=== PATIENT | male | born 1970 | race American Indian/Alaskan Native ===

== ENCOUNTER 2018-02-23 08:27 | Emergency (ER) | payer MEDICAID ==
[2018-02-23 08:38] VITALS: BP 123/87
[2018-02-23] MEDS ORDERED: MOTRIN PO ONE (09:47)
[2018-02-23] MEDS ORDERED: ULTRAM PO ONE (09:47)
--- NOTE | 2018-02-23 11:39 | XRay Report ---
Right rib series: Right rib trauma, pain. There is a mild offset through a fracture of the lateral right 10th rib. The ribs are otherwise appears unremarkable. There is no underlying soft tissue mass. There is no pneumothorax and the right lung is clear. Impression: Right 10th rib fracture.
--- NOTE | 2018-02-23 11:53 | Emergency Department Report ---
ED Fall HPI - General Chief Complaint: Fall Stated Complaint: FALL Time Seen by Provider: 02/23/18 09:40 Source: patient, family Mode of arrival: Ambulatory - History of Present Illness Initial Comments: This is a 47-year-old male that lives with sister who is janitor caretaker. Sister reported patient had multiple strokes and he uses a walker and fell last week Monday at the daycare. He's been higher than body ache and right rib pain at posterior lower upper back. Denies patient would've any head injury. Patient denies any headache. He says his pain to right rib posteriorly is 6 out of 10 and feels sore and achy. Pain is worse with taking a deep breath and moving around but is resting. No positive medication taken. MD Complaint: fall Onset/Timin -: week(s) Fall From: standing When Fall Occurred: # days [employer] (7) Fall Witnessed: yes, by living facility s Place Fall Occurred: other (daycare) Loss of Consciousness: none Prolonged Down Time?: no Symptoms Prior to Fall: none Location: back (right thorax) Severity: moderate Severity scale (0 -10): 6 Quality: aching Context: tripped/slipped, other (patient uses a walker and his mobilities impede or for multiple stroke) Associated Symptoms: other (body ache). denies: headache, neck pain, numbness, weakness, chest paint, shortness of breath, abdominal pain, hematuria, unable to walk - Related Data Previous Rx's Medication Instructions Recorded Last Taken Type Acetaminophen/Codeine [Tylenol 1 tab PO Q6H PRN #12 tab 02/23/18 Unknown Rx /Codeine # 3 tab] Ibuprofen [Motrin] 600 mg PO Q8H PRN #15 tablet 02/23/18 Unknown Rx Allergies Allergy/AdvReac Type Severity Reaction Status Date / Time No Known Allergies Allergy Unverified 02/23/18 08:32 ED Review of Systems ROS: Stated complaint: FALL Other details as noted in HPI Constitutional: denies: chills, fever Eyes: denies: eye pain, vision change Respiratory: denies: cough, shortness of breath, SOB with exertion, SOB at rest , stridor, wheezing Cardiovascular: denies: chest pain, palpitations, edema, syncope Gastrointestinal: denies: abdominal pain, nausea, vomiting, diarrhea Genitourinary: denies: urgency, dysuria Musculoskeletal: back pain, myalgia. denies: joint swelling, arthralgia Skin: denies: rash, lesions Neurological: abnormal gait (chronic). denies: headache, weakness, numbness, paresthesias ED Past Medical Hx - Past Medical History Previous Medical History?: Yes Hx Hypertension: Yes Hx CVA: Yes (x 3) Hx Diabetes: Yes Additional medical history: Left facial droop and right side weakness after multiple CVA - Surgical History Past Surgical History?: Yes Additional Surgical History: Right jaw surgery, Left knee - Family History Family history: hypertension - Social History Smoking Status: Current Every Day Smoker Substance Use Type: Prescribed - Medications Home Medications: Home Medications Medication Instructions Recorded Confirmed Last Taken Type Acetaminophen/Codeine [Tylenol 1 tab PO Q6H PRN #12 tab 02/23/18 Unknown Rx /Codeine # 3 tab] Ibuprofen [Motrin] 600 mg PO Q8H PRN #15 tablet 02/23/18 Unknown Rx ED Physical Exam - General Limitations: Physical Limitation General appearance: alert, in no apparent distress - Head Head exam: Present: atraumatic, normocephalic, normal inspection, other (normal exam) - Eye Eye exam: Present: normal appearance, PERRL, EOMI - ENT ENT exam: Present: normal exam, normal orophraynx, mucous membranes moist - Neck Neck exam: Present: normal inspection, full ROM, other (no C-spine tenderness). Absent: tenderness, lymphadenopathy - Respiratory Respiratory exam: Present: normal lung sounds bilaterally, chest wall tenderness (posterior distal right thorax tenderness without any contusion, abrasion or laceration. Old healed scar noted). Absent: respiratory distress, wheezes, rales, rhonchi, stridor, accessory muscle use, decreased breath sounds , prolonged expiratory - Cardiovascular Cardiovascular Exam: Present: normal rhythm, tachycardia (mild). Absent: systolic murmur, diastolic murmur - GI/Abdominal GI/Abdominal exam: Present: soft, normal bowel sounds - Rectal Rectal exam: Present: deferred - Extremities Exam Extremities exam: Present: normal inspection - Back Exam Back exam: Present: normal inspection - Neurological Exam Neurological exam: Present: alert, oriented X3 - Psychiatric Psychiatric exam: Present: normal affect, normal mood - Skin Skin exam: Present: warm, dry, intact, normal color. Absent: rash ED Course Vital Signs 02/23/18 08:33 Temperature 98.3 F Pulse Rate 102 H Respiratory 20 Rate Blood Pressure 123/87 O2 Sat by Pulse 98 Oximetry - Reevaluation(s) Reevaluation #1: 02/23/18 11:49 Patient given ibuprofen 800 mg by mouth and tramadol 50 mg by mouth status post fall with her right posterior rib pain. He voiced relief of pain down to 2 out of 10. ED Medical Decision Making - Radiology Data Radiology results: report reviewed Patient had x-ray of right rib with PA chest and was dictated by radiologist and reviewed by myself. Please see report below Patient: KANDACE MARINA MR#: [id number] : 1970 Acct:[id number] Age/Sex: 47 / M ADM Date: 02/23/18 Loc: ED Attending Dr: Ordering Physician: LEROY CISNEROS MD Date of Service: 02/23/18 Procedure(s): XR ribs UNI w PA Chest 3+V RT Accession Number(s): [id number] cc: LEROY CISNEROS MD Fluoro Time In Minutes: Right rib series: Right rib trauma, pain. There is a mild offset through a fracture of the lateral right 10th rib. The ribs are otherwise appears unremarkable. There is no underlying soft tissue mass. There is no pneumothorax and the right lung is clear. Impression: Right 10th rib fracture. Transcribed By: MICHELLE Dictated By: PAUL LINARES MD Electronically Authenticated By: PAUL LINARES MD Signed Date/Time: 02/23/18 111 DD/ 1114 TD/TT: 02/23/18 111 - Medical Decision Making This is a 47-year-old male brought to the hospital by his sister after falling and injuring his right back now complaining of right back pain. Sister said that patient was not assisted living facility and they did not tell her. She brought patient to be evaluated pain. Patient has history of multiple stroke and he has chronic mobility problem, speech impairment and dysphagia. Patient was screened by Dr. Leroy Cisneros .This patient was seen by myself and examined and examination is normal except he has some tenderness to palpate at right lateral thorax distally without any contusion or deformity. No tentative skin noted. Patient had a lateral right rib x-ray with PA chest and it shows patient with right 10th rib fracture laterally otherwise normal and chest x-ray is normal. Sr. and patient updated on x-ray report and they voiced understanding and patient pain is controlled This patient was seen by myself and examined and she has mild swelling to left thumb with minimal pain on range of motion but no restriction in movement, no erythema, no laceration contusion or abrasion. No ecchymotic area noted. X- ray of left hand dictated by radiologist and revealed no fracture or dislocation and no soft tissue swelling. X-ray reviewed by myself. I discussed the patient her x-ray results and she voiced understanding. A/P 1: Right 10th rib fracture-patient to follow-up with orthopedic in his primary care physician in 3 days. Incentive spirometry given. Respiratory therapy taught the patient had a use incentive spirometry 2: Musculoskeletal pain due to rib fracture-patient given Motrin 800 mg by mouth and Ultram 50 mg when necessary emergency room which helped his pain and he'll be discharged home on Motrin and Tylenol No. 3. 3: Accidental fall-instruction given on fall prevention and they voiced understanding. Prescription given for Motrin 600 mg and Tylenol No. 3 when necessary Patient educated on medication, Rice therapy, fall prevention, diagnosis, x-ray reports and treatment plan and use of incentive spirometry and voiced understanding. Patient discharged home in stable condition to follow up with orthopedic and primary care physician in 3 days. Pain is controlled and he said he feels better. Discharged home with his sister in stable condition. - Differential Diagnosis rib fracture, contusion, pneumonia, pneumothorax, musculoskeletal pain Critical care attestation.: If time is entered above; I have spent that time in minutes in the direct care of this critically ill patient, excluding procedure time. ED Disposition Clinical Impression: Musculoskeletal pain Right rib fracture Qualifiers: Encounter type: initial encounter Rib fracture type: single rib Fracture type: closed Qualified Code(s): S22.31XA - Fracture of one rib, right side, initial encounter for closed fracture Fall, accidental Qualifiers: Encounter type: initial encounter Qualified Code(s): W19.XXXA - Unspecified fall, initial encounter Disposition: TO HOME OR SELFCARE Is pt being admited?: No Does the pt Need Aspirin: No Condition: Stable Instructions: Fall Prevention (ED), Musculoskeletal Pain (ED), Rib Fracture (ED ) Additional Instructions: The discharge instructions on Rice therapy use incentive spirometry every 3 hours while awake and this will help to prevent your lungs from collapsing Take Tylenol No. 3 for severe pain but please do not drive or operate heavy machinery while taking this medication as it causes drowsiness Motrin for mild to moderate pain If you're condition worsens, such as difficulty breathing, coughing up blood, increased pain please return to the emergency room [facility] Prescriptions: Acetaminophen/Codeine [Tylenol /Codeine # 3 tab] 1 tab PO Q6H PRN #12 tab PRN Reason: severe pain Ibuprofen [Motrin] 600 mg PO Q8H PRN #15 tablet PRN Reason: Pain Referrals: PITO NORRIS MD [Staff Physician] - 02/26/18 PAUL MARTE MD [Staff Physician] - 02/26/18 Forms: Accompanied Note
== END 2018-02-23 12:25 | disposition home or self-care (01) ==
LOC: ED 08:27
DX: S22.31XA Fracture of one rib, right side, initial encounter for closed fracture (principal); I10 Essential (primary) hypertension; E11.9 Type 2 diabetes mellitus without complications; F17.200 Nicotine dependence, unspecified, uncomplicated; W01.198A Fall on same level from slipping, tripping and stumbling with subsequent striking against other object, initial encounter; Y93.89 Activity, other specified; Y92.89 Other specified places as the place of occurrence of the external cause; Y99.8 Other external cause status
CPT/HCPCS: 99283

== ENCOUNTER 2021-04-02 10:25 | Outpatient (CLI) | payer MEDICAID ==
--- NOTE | 2021-04-02 12:43 | XRay Report ---
Left foot 2 views INDICATION: Left foot pain IMPRESSION: Diffuse osteopenia. No acute fracture identified. Signer Name: Larry Sloan MD Signed: 04/02/2021 12:36 PM Workstation Name: [id number]
== END 2021-04-02 10:26 | disposition home or self-care (01) ==
LOC: XRAY 10:25
PROVIDERS: ATTEND Podiatrist
DX: S90.821A Blister (nonthermal), right foot, initial encounter (principal); X58.XXXA Exposure to other specified factors, initial encounter; Y93.89 Activity, other specified; Y92.89 Other specified places as the place of occurrence of the external cause; Y99.8 Other external cause status